=== PATIENT | female | born 1995 | race African-American/Black ===

== ENCOUNTER 2018-06-24 23:11 | Emergency (ER) | payer OTHER ==
[~2018-06-24] VITALS: Ht 149.9 cm; Wt 55.8 kg
[~2018-06-24 23:11] MED LIST: FLEXERIL PO; HYDROCODONE-AP1 EAC6 PO; NAPROSYN500 MG PO; NOHOMEMEDICATIONS; PREDNISONE 20 M20 MG PO; SENNA8.6 MG PO
[2018-06-24] MEDS ORDERED: BACTRIM DS TAB1 EACH PO (23:34)
[2018-06-25] VITALS: BP 148/103
== END 2018-06-25 | disposition home or self-care (01) ==
LOC: ER 23:11
DX: N61.1 Abscess of the breast and nipple (principal); Z87.891 Personal history of nicotine dependence

== ENCOUNTER 2018-07-03 01:09 | Emergency (ER) | payer OTHER ==
[~2018-07-03] VITALS: Ht 149.9 cm; Wt 55.8 kg
[~2018-07-03 01:09] MED LIST changes: +BACTRIM DS TAB1 EACH PO
[2018-07-03 01:21] LABS: URINE BILIRUBIN NEGATIVE (Negative); URINE BLOOD NEGATIVE (Negative); URINE CLARITY CLEAR; URINE COLOR YELLOW; URINE GLUCOSE-RANDOM* NEGATIVE (Negative); URINE KETONES NEGATIVE (Negative); URINE LEUKOCYTES-REFLEX NEGATIVE (Negative); URINE NITRITE-REFLEX NEGATIVE (Negative); URINE PROTEIN (DIPSTICK) NEGATIVE (Negative); URINE SPECIFIC GRAVITY 1.025 (1.005-1.035); URINE UROBILINOGEN 0.2 E.U./dl (0.2-1.0)
[2018-07-03 02:08] LABS: ABSOLUTE NEUTROPHILS 6.1 thou/uL (1.4-8.2); BASOPHILS 0.5 % (0.0-2.0); HEMATOCRIT 37.9 % (37.0-47.0); HEMOGLOBIN 12.8 gm/dL (12.0-15.0); LYMPHOCYTES 10.7 % (24.0-44.0); MCH 33.2 pg (26.0-34.0); MCHC 33.9 g/dL (28.0-37.0); MONOCYTES 4.1 % (1.0-8.0); PLATELET COUNT 233 thou/uL (150-400); POLYS 84.7 % (36.0-66.0); RBC 3.87 mil/uL (4.20-5.00); WBC 7.2 thou/uL (4.0-11.0)
[2018-07-03 02:16] LABS: CALCIUM 8.9 mg/dL (8.5-10.1); CREATININE 0.6 mg/dL (0.6-1.0); POTASSIUM 3.6 mmol/L (3.5-5.1)
[2018-07-03 02:21] LABS: ALBUMIN 3.8 g/dL (3.4-5.0); TOTAL BILIRUBIN 0.3 mg/dL (<0.1-1.0); TOTAL PROTEIN 8.1 g/dL (6.4-8.2)
[2018-07-03] MEDS ORDERED: ZOFRAN4 MG PO (03:40)
[2018-07-03] MEDS ORDERED: PHENERGAN 25 MG25 M1 PO (03:40)
[2018-07-03] MEDS ORDERED: NORCO 5-325 TA1 EACH PO (03:40)
[2018-07-03 04:32] VITALS: BP 123/82
[2018-07-04] MEDS ORDERED: PHENERGAN12.5 M2 RECTAL (11:51)
== END 2018-07-03 04:34 | disposition home or self-care (01) ==
LOC: ER 01:09
PROVIDERS: Emergency Medicine
DX: K52.9 Noninfective gastroenteritis and colitis, unspecified (principal); Z87.891 Personal history of nicotine dependence

== ENCOUNTER 2018-07-04 10:17 | Emergency (ER) | payer OTHER ==
[~2018-07-04] VITALS: Ht 149.9 cm; Wt 55.8 kg
[~2018-07-04 10:17] MED LIST changes: +NORCO 5-325 TA1 EACH PO; +PHENERGAN 25 MG25 M1 PO; +ZOFRAN4 MG PO
[2018-07-04 10:33] LABS: URINE BILIRUBIN NEGATIVE (Negative); URINE BLOOD NEGATIVE (Negative); URINE CLARITY SL CLOUDY; URINE COLOR YELLOW; URINE GLUCOSE-RANDOM* NEGATIVE (Negative); URINE KETONES TRACE (Negative); URINE LEUKOCYTES-REFLEX NEGATIVE (Negative); URINE NITRITE-REFLEX NEGATIVE (Negative); URINE PROTEIN (DIPSTICK) NEGATIVE (Negative)
[2018-07-04 10:42] LABS: ABSOLUTE NEUTROPHILS 3.2 thou/uL (1.4-8.2); BASOPHILS 0.4 % (0.0-2.0); EOSINOPHILS 0.3 % (0.0-3.0); HEMATOCRIT 36.8 % (37.0-47.0); HEMOGLOBIN 12.4 gm/dL (12.0-15.0); LYMPHOCYTES 17.2 % (24.0-44.0); MCH 33.5 pg (26.0-34.0); MCHC 33.7 g/dL (28.0-37.0); MCV 99.5 fL (80.0-100.0); MONOCYTES 3.4 % (1.0-8.0); PLATELET COUNT 224 thou/uL (150-400); POLYS 78.7 % (36.0-66.0); RBC 3.69 mil/uL (4.20-5.00); RDW 12.5 % (10.5-14.5); WBC 4.1 thou/uL (4.0-11.0)
[2018-07-04 10:50] LABS: CALCIUM 9.5 mg/dL (8.5-10.1); CREATININE 0.6 mg/dL (0.6-1.0); POTASSIUM 3.8 mmol/L (3.5-5.1)
[2018-07-04 10:56] LABS: ALBUMIN 4.1 g/dL (3.4-5.0); TOTAL BILIRUBIN 0.3 mg/dL (<0.1-1.0); TOTAL PROTEIN 8.2 g/dL (6.4-8.2)
[2018-07-04 11:16] LABS: AMP/METHAMP Negative (Negative); BARBITURATES Negative (Negative); BENZODIAZEPINES Negative (Negative); COCAINE Negative (Negative); METHADONE Negative (Negative); OPIATES POSITIVE (Negative); PCP Negative (Negative)
[2018-07-04] MEDS ORDERED: PHENERGAN12.5 M2 RECTAL (11:51)
[2018-07-04 11:56] VITALS: BP 120/84
[2018-07-05] MEDS ORDERED: REGLAN 10 MG TA10 MG PO (20:10)
== END 2018-07-04 12:01 | disposition home or self-care (01) ==
LOC: ER 10:17
PROVIDERS: Nurse Practitioner Family
DX: F12.188 Cannabis abuse with other cannabis-induced disorder (principal); R10.9 Unspecified abdominal pain; R11.2 Nausea with vomiting, unspecified; Z87.891 Personal history of nicotine dependence

== ENCOUNTER 2018-07-05 18:17 | Emergency (ER) | payer OTHER ==
[~2018-07-05] VITALS: Ht 149.9 cm; Wt 54.4 kg
[~2018-07-05 18:17] MED LIST changes: +PHENERGAN12.5 M2 RECTAL
[2018-07-05 19:06] LABS: URINE BILIRUBIN NEGATIVE (Negative); URINE BLOOD NEGATIVE (Negative); URINE CLARITY CLEAR; URINE COLOR YELLOW; URINE GLUCOSE-RANDOM* NEGATIVE (Negative); URINE KETONES 3+ (Negative); URINE LEUKOCYTES-REFLEX NEGATIVE (Negative); URINE NITRITE-REFLEX NEGATIVE (Negative); URINE PROTEIN (DIPSTICK) NEGATIVE (Negative)
[2018-07-05 19:08] LABS: URINE REDUCING SUBSTANCE NEGATIVE
[2018-07-05 19:18] LABS: ABSOLUTE NEUTROPHILS 2.6 thou/uL (1.4-8.2); BASOPHILS 0.9 % (0.0-2.0); EOSINOPHILS 0.2 % (0.0-3.0); HEMATOCRIT 36.9 % (37.0-47.0); LYMPHOCYTES 23.4 % (24.0-44.0); MCH 34.3 pg (26.0-34.0); MCHC 35.3 g/dL (28.0-37.0); MCV 97.3 fL (80.0-100.0); MONOCYTES 6.3 % (1.0-8.0); PLATELET COUNT 231 thou/uL (150-400); POLYS 69.2 % (36.0-66.0); RBC 3.79 mil/uL (4.20-5.00); RDW 12.2 % (10.5-14.5); WBC 3.8 thou/uL (4.0-11.0)
[2018-07-05 19:26] LABS: CALCIUM 9.4 mg/dL (8.5-10.1); CREATININE 0.7 mg/dL (0.6-1.0); POTASSIUM 3.1 mmol/L (3.5-5.1)
[2018-07-05 19:32] LABS: ALBUMIN 4.4 g/dL (3.4-5.0); TOTAL BILIRUBIN 0.6 mg/dL (<0.1-1.0); TOTAL PROTEIN 8.9 g/dL (6.4-8.2)
[2018-07-05] MEDS ORDERED: REGLAN 10 MG TA10 MG PO (20:10)
[2018-07-05 20:48] VITALS: BP 121/75
== END 2018-07-05 20:49 | disposition home or self-care (01) ==
LOC: ER 18:17
PROVIDERS: Nurse Practitioner Family
DX: F12.188 Cannabis abuse with other cannabis-induced disorder (principal); E87.6 Hypokalemia

== ENCOUNTER 2018-08-09 01:18 | Emergency (ER) | payer OTHER ==
[~2018-08-09] VITALS: Ht 149.9 cm; Wt 54.4 kg
[~2018-08-09 01:18] MED LIST changes: +REGLAN 10 MG TA10 MG PO
[2018-08-09 01:19] VITALS: BP 129/87
[2018-08-09] MEDS ORDERED: TRAMADOL 50 MG50 MG PO (02:07)
[2018-08-09] MEDS ORDERED: BACTRIM DS TAB1 EACH PO (02:07)
== END 2018-08-09 02:10 | disposition home or self-care (01) ==
LOC: ER 01:18
PROC: 0H98XZZ Drainage of Buttock Skin, External Approach (ICD-10-PCS; principal; 2018-08-09)
DX: L05.01 Pilonidal cyst with abscess (principal); Z87.891 Personal history of nicotine dependence

== ENCOUNTER 2018-11-16 01:18 | Emergency (ER) | payer OTHER ==
[~2018-11-16] VITALS: Ht 149.9 cm; Wt 59.0 kg
[~2018-11-16 01:18] MED LIST changes: +TRAMADOL 50 MG50 MG PO
[2018-11-16 01:19] VITALS: BP 132/88
[2018-11-16] MEDS ORDERED: NORFLEX100 MG PO (01:34)
[2018-11-16] MEDS ORDERED: MOBIC15 MG PO (01:34)
== END 2018-11-16 01:48 | disposition home or self-care (01) ==
LOC: ER 01:18
DX: S16.1XXA Strain of muscle, fascia and tendon at neck level, initial encounter (principal); S39.012A Strain of muscle, fascia and tendon of lower back, initial encounter; R51 Headache; V89.0XXA Person injured in unspecified motor-vehicle accident, nontraffic, initial encounter; Y93.89 Activity, other specified; Y92.89 Other specified places as the place of occurrence of the external cause; Y99.8 Other external cause status

== ENCOUNTER 2019-07-16 09:34 | Emergency (ER) | payer OTHER ==
[~2019-07-16] VITALS: Ht 149.9 cm; Wt 56.7 kg
[~2019-07-16 09:34] MED LIST changes: +MOBIC15 MG PO; +NORFLEX100 MG PO
[2019-07-16 09:35] VITALS: BP 112/70
== END 2019-07-16 10:13 | disposition home or self-care (01) ==
LOC: ER 09:34
DX: G56.03 Carpal tunnel syndrome, bilateral upper limbs (principal); Z87.891 Personal history of nicotine dependence

== ENCOUNTER 2019-09-12 06:15 | Emergency (ER) | payer OTHER ==
[~2019-09-12] VITALS: Ht 149.9 cm; Wt 58.1 kg
[2019-09-12 07:01] LABS: HEMATOCRIT 36.4 % (37.0-47.0); HEMOGLOBIN 12.3 gm/dL (12.0-15.0); MCH 34.1 pg (26.0-34.0); MCHC 33.8 g/dL (28.0-37.0); MCV 100.9 fL (80.0-100.0); PLATELET COUNT 223 thou/uL (150-400); RBC 3.61 mil/uL (4.20-5.00); RDW 12.5 % (10.5-14.5); WBC 4.2 thou/uL (4.0-11.0)
[2019-09-12 07:09] LABS: ALBUMIN 3.7 g/dL (3.4-5.0); CREATININE 0.7 mg/dL (0.6-1.0); POTASSIUM 3.1 mmol/L (3.5-5.1); TOTAL BILIRUBIN 0.2 mg/dL (<0.1-1.0); TOTAL PROTEIN 8.1 g/dL (6.4-8.2)
[2019-09-12 07:58] VITALS: BP 98/55
[2019-09-12 11:49] LABS: ABSOLUTE NEUTROPHILS 1.3 thou/uL (1.4-8.2)
[2019-09-12 11:50] LABS: ANISOCYTOSIS SLIGHT
== END 2019-09-12 08:00 | disposition home or self-care (01) ==
LOC: ER 06:15
PROVIDERS: Emergency Medicine
DX: R10.9 Unspecified abdominal pain (principal); Z87.891 Personal history of nicotine dependence

== ENCOUNTER 2019-10-03 14:59 | Emergency (ER) | payer OTHER ==
[~2019-10-03] VITALS: Ht 149.9 cm; Wt 56.7 kg
[2019-10-03 15:03] VITALS: BP 129/96
[2019-10-03] MEDS ORDERED: MOBIC7.5 MG PO (15:33)
== END 2019-10-03 15:44 | disposition home or self-care (01) ==
LOC: ER 14:59
DX: M70.842 Other soft tissue disorders related to use, overuse and pressure, left hand (principal); M70.841 Other soft tissue disorders related to use, overuse and pressure, right hand; Z87.891 Personal history of nicotine dependence; Y93.89 Activity, other specified

== ENCOUNTER 2020-07-28 21:02 | Emergency (ER) | payer OTHER ==
[~2020-07-28] VITALS: Ht 149.9 cm; Wt 54.4 kg
[~2020-07-28 21:02] MED LIST changes: +MOBIC7.5 MG PO
[2020-07-28] MEDS ORDERED: NO MEDS (21:15)
[2020-07-28 21:43] LABS: URINE BILIRUBIN NEGATIVE (Negative); URINE BLOOD 3+ (Negative); URINE CLARITY SL CLOUDY; URINE COLOR YELLOW; URINE GLUCOSE-RANDOM* NEGATIVE (Negative); URINE KETONES NEGATIVE (Negative); URINE PROTEIN (DIPSTICK) 2+ (Negative); URINE SPECIFIC GRAVITY 1.015 (1.005-1.035); URINE UROBILINOGEN 0.2 E.U./dl (0.2-1.0)
[2020-07-28 21:52] LABS: URINE LEUKOCYTES-REFLEX 3+ (Negative); URINE NITRITE-REFLEX POSITIVE (Negative)
[2020-07-28 21:53] LABS: BACTERIA-REFLEX 1-9 Few /HPF (None Seen); CASTS None Seen /LPF (None Seen); CRYSTALS None Seen /LPF (None Seen); MUCUS 0-3 Light strn/LPF (None Seen); SQUAMOUS 0-3 Few /LPF (0-3); URINE RBC >20 Many /HPF (0-2); URINE WBC-REFLEX >25 Many /HPF (0-5)
[2020-07-28] MEDS ORDERED: PYRIDIUM200 MG PO (22:29)
[2020-07-28] MEDS ORDERED: MOBIC15 MG PO (22:29)
[2020-07-28] MEDS ORDERED: MACROBID 100 M100 M1 PO (22:29)
[2020-07-28 22:46] VITALS: BP 117/72
== END 2020-07-28 22:48 | disposition home or self-care (01) ==
LOC: ER 21:02
PROVIDERS: Emergency Medicine
DX: N39.0 Urinary tract infection, site not specified (principal); M54.6 Pain in thoracic spine; Z87.891 Personal history of nicotine dependence

== ENCOUNTER 2020-12-20 18:26 | Emergency (ER) | payer OTHER ==
[~2020-12-20] VITALS: Ht 160 cm; Wt 63.5 kg
[~2020-12-20 18:26] MED LIST changes: +MACROBID 100 M100 M1 PO; +NO MEDS; +PYRIDIUM200 MG PO
[2020-12-20 18:57] LABS: URINE BILIRUBIN 1+ (Negative); URINE BLOOD NEGATIVE (Negative); URINE CLARITY CLEAR; URINE COLOR YELLOW; URINE GLUCOSE-RANDOM* NEGATIVE (Negative); URINE KETONES 2+ (Negative); URINE LEUKOCYTES-REFLEX NEGATIVE (Negative); URINE NITRITE-REFLEX NEGATIVE (Negative); URINE PROTEIN (DIPSTICK) NEGATIVE (Negative); URINE SPECIFIC GRAVITY >= 1.030 (1.005-1.035); URINE UROBILINOGEN 0.2 E.U./dl (0.2-1.0)
[2020-12-20 19:02] LABS: ICTOTEST (BILI CONFIRMATORY) Negative (Negative)
[2020-12-20 19:54] LABS: ABSOLUTE NEUTROPHILS 3.8 thou/uL (1.4-8.2); BASOPHILS 0.6 % (0.0-2.0); EOSINOPHILS 0.8 % (0.0-3.0); HEMATOCRIT 36.9 % (37.0-47.0); HEMOGLOBIN 12.8 gm/dL (12.0-15.0); LYMPHOCYTES 22.9 % (24.0-44.0); MCH 35.4 pg (26.0-34.0); MCHC 34.6 g/dL (28.0-37.0); MCV 102.3 fL (80.0-100.0); MONOCYTES 10.1 % (1.0-8.0); PLATELET COUNT 224 thou/uL (150-400); POLYS 65.6 % (36.0-66.0); RBC 3.61 mil/uL (4.20-5.00); RDW 12.5 % (10.5-14.5); WBC 5.7 thou/uL (4.0-11.0)
[2020-12-20 20:02] LABS: CALCIUM 9.3 mg/dL (8.5-10.1); CREATININE 0.7 mg/dL (0.6-1.0); POTASSIUM 3.5 mmol/L (3.5-5.1)
[2020-12-20 20:08] LABS: TOTAL BILIRUBIN 0.7 mg/dL (0.2-1.0); TOTAL PROTEIN 8.3 g/dL (6.4-8.2)
[2020-12-20] MEDS ORDERED: ZOFRAN ODT4 MG PO (21:18)
[2020-12-20] MEDS ORDERED: NORCO5 PO (21:18)
[2020-12-20 21:46] VITALS: BP 130/62
== END 2020-12-20 21:47 | disposition home or self-care (01) ==
LOC: ER 18:26
PROVIDERS: Nurse Practitioner Family
DX: N83.201 Unspecified ovarian cyst, right side (principal); Z79.899 Other long term (current) drug therapy

== ENCOUNTER 2021-05-09 12:17 | Emergency (ER) | payer OTHER ==
[~2021-05-09] VITALS: Ht 149.9 cm; Wt 54.4 kg
[~2021-05-09 12:17] MED LIST changes: +NORCO5 PO; +ZOFRAN ODT4 MG PO
[2021-05-09 12:19] VITALS: BP 108/68
[2021-05-09] MEDS ORDERED: SSD CREAM 1% 5050 GM TOP (13:59)
[2021-05-09] MEDS ORDERED: DOXYCYCLINE 10100 MG PO (13:59)
[2021-05-09] MEDS ORDERED: ULTRAM 50MG TAB50 MG PO (14:00)
== END 2021-05-09 13:59 | disposition home or self-care (01) ==
LOC: ER 12:17
DX: L73.2 Hidradenitis suppurativa (principal)